=== PATIENT | female | born 1980 | race Caucasian/White ===

== ENCOUNTER 2020-10-10 08:22 | Emergency (ER) | payer OTHER ==
[~2020-10-10] VITALS: Ht 162.6 cm; Wt 63.5 kg
[2020-10-10 10:02] LABS: HEMOGLOBIN 13.6 gm/dl (12.3-15.3); RED BLOOD COUNT 4.49 M/UL (4.00-5.10); WHITE BLOOD COUNT 4.5 K/UL (4.5-11.0)
[2020-10-10 10:48] LABS: BUN/CREATININE RATIO 21 (0-10)
== END 2020-10-10 11:45 | disposition home or self-care (01) ==
LOC: ER1 08:22
PROVIDERS: Emergency Medicine
DX: R07.2 Precordial pain (principal); R00.2 Palpitations
CPT/HCPCS: 71045; 80053; 81001; 82550; 82553; 83874; 84484; 84703; 85025; 93005; 99285

== ENCOUNTER → 2021-02-22 | Outpatient (CLI) | payer OTHER ==
[2021-02-23 11:15] LABS: RHEUMATOID ARTHRITIS FACTOR <10.0 IU/mL (0.0-13.9)
[2021-02-24 00:09] LABS: CCP ANTIBODIES IGG/IGA 5 units (0-19)
== END ==
LOC: LAB 11:54
PROVIDERS: Internal Medicine
DX: R53.83 Other fatigue (principal); M25.50 Pain in unspecified joint; R76.8 Other specified abnormal immunological findings in serum
CPT/HCPCS: 82728; 83520; 86200; 86431